=== PATIENT | male | born 2000 | race African-American/Black ===

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

== ENCOUNTER 2023-01-17 00:28 | Emergency (ER) | payer MEDICAID ==
[~2023-01-17] VITALS: Ht 172.7 cm; Wt 69.0 kg
[~2023-01-17 00:28] MED LIST: QUET25TA MT
[2023-01-17] MEDS ORDERED: LORAZEPAM 2MG/ML CPJ IM ONE (01:00)
[2023-01-17] MEDS ORDERED: HALOPERIDOL LACTATE 5MG/ML VIAL IM ONE (01:30)
[2023-01-17 01:43] LABS: BASOPHILS % 0.1 % (0.0-2.0); EOSINOPHILS % 2.2 % (0.0-5.0); HEMATOCRIT. 40.9 % (42.0-52.0); HEMOGLOBIN. 13.5 g/dL (14.0-18.0); LYMPHOCYTES % 12.3 % (20.0-50.0); MEAN CORPUSCULAR HEMOGLOBIN 29.2 pg (28.0-32.0); MEAN CORPUSCULAR VOLUME 88.1 fL (80.0-94.0); MEAN PLATELET VOLUME 9.5 fl (7.4-10.4); MONOCYTES % 5.5 % (2.0-8.0); NEUTROPHILS % 79.9 % (40.0-76.0); PLATELET 301 x1000/uL (130-400); RED BLOOD CELL COUNT 4.64 mill/uL (4.7-6.1); RED CELL DISTRIBUTION WIDTH 13.5 % (11.6-14.6)
[2023-01-17 01:45] LABS: CLARITY URINE CLEAR (CLEAR); COLOR URINE DARK YELLOW (YELLOW); KETONES URINE 2+ (NEGATIVE); LEUKOCYTE ESTERASE URINE NEGATIVE (NEGATIVE); NITRITE URINE NEGATIVE (NEGATIVE); OCCULT BLOOD URINE NEGATIVE (NEGATIVE); PH URINE 5.5 (4.5-8.0); PROTEIN URINE 2+ (NEGATIVE); SPECIFIC GRAVITY URINE 1.026 (1.005-1.030)
[2023-01-17 01:54] LABS: CHLORIDE 103 mEq/L (98-107)
[2023-01-17 01:56] LABS: *AMPHETAMINES SCREEN URINE PRESUMTIVE POSITIVE (NEGATIVE); *BARBITURATES SCREEN URINE NEGATIVE (NEGATIVE); *BENZODIAZEPINES SCREEN URINE PRESUMTIVE POSITIVE (NEGATIVE); *COCAINE SCREEN URINE NEGATIVE (NEGATIVE); CANNABINOID URINE SCREEN PRESUMTIVE POSITIVE (NEGATIVE); METHADONE URINE SCREEN NEGATIVE (NEGATIVE); OPIATES URINE SCREEN NEGATIVE (NEGATIVE); PHENCYCLIDINE URINE SCREEN NEGATIVE (NEGATIVE)
[2023-01-17 02:03] LABS: ETHANOL BLOOD 107 mg/dL (-10)
[2023-01-17] MEDS ORDERED: OLANZAPINE 5MG TABLET ODT PO SCH (17:00)
[2023-01-17 22:00] VITALS: BP 140/85
== END 2023-01-17 23:50 ==
LOC: ER 00:38
DX: R45.851 Suicidal ideations (principal); T43.641A Poisoning by ecstasy, accidental (unintentional), initial encounter; Y92.89 Other specified places as the place of occurrence of the external cause; T51.0X1A Toxic effect of ethanol, accidental (unintentional), initial encounter; Z20.822 Contact with and (suspected) exposure to COVID-19; F31.9 Bipolar disorder, unspecified; F20.9 Schizophrenia, unspecified; F12.10 Cannabis abuse, uncomplicated; F15.10 Other stimulant abuse, uncomplicated
CPT/HCPCS: 36415; 80053; 80305; 80307; 80320; 80329; 81003; 85025; 87426; 96372; 99285; C9803; J1630; J2060; Z7610; G0480

== ENCOUNTER 2023-02-05 20:50 | Emergency (ER) | payer MEDICAID ==
[~2023-02-05] VITALS: Ht 170.2 cm; Wt 59.0 kg
[2023-02-05 20:52] VITALS: BP 131/100; PULSE 75; RESP 16; TEMP 98.7; O2SAT 99
[2023-02-05] MEDS ORDERED: LORAZEPAM 1MG TABLET PO ONE (21:15)
== END 2023-02-05 21:42 | disposition left against medical advice (07) ==
LOC: ER 20:50
DX: T50.901A Poisoning by unspecified drugs, medicaments and biological substances, accidental (unintentional), initial encounter (principal); F14.10 Cocaine abuse, uncomplicated; F12.10 Cannabis abuse, uncomplicated; F15.10 Other stimulant abuse, uncomplicated; Z86.59 Personal history of other mental and behavioral disorders; Y92.9 Unspecified place or not applicable
CPT/HCPCS: 99283

== ENCOUNTER 2023-02-05 23:46 | Emergency (ER) | payer MEDICAID ==
[~2023-02-05] VITALS: Ht 180.3 cm; Wt 65.5 kg
[2023-02-05 23:54] VITALS: BP 155/89; PULSE 89; RESP 18; TEMP 98.7; O2SAT 100
== END 2023-02-06 00:15 | disposition left against medical advice (07) ==
LOC: ER 23:46
DX: Z53.21 Procedure and treatment not carried out due to patient leaving prior to being seen by health care provider (principal)
CPT/HCPCS: 99281

== ENCOUNTER 2023-02-06 02:26 | Emergency (ER) | payer MEDICAID ==
[~2023-02-06] VITALS: Ht 179.1 cm; Wt 66.0 kg
[2023-02-06 02:37] VITALS: BP 132/81; PULSE 142; RESP 22; TEMP 97.5; O2SAT 100
[2023-02-06] MEDS ORDERED: LORAZEPAM 2MG/ML CPJ IM ONE (03:00)
[2023-02-06] MEDS ORDERED: HALOPERIDOL LACTATE 5MG/ML VIAL IM ONE (03:00)
[2023-02-06 03:42] LABS: BASOPHILS % 0.3 % (0.0-2.0); EOSINOPHILS % 0.1 % (0.0-5.0); HEMATOCRIT. 38.6 % (42.0-52.0); HEMOGLOBIN. 12.8 g/dL (14.0-18.0); LYMPHOCYTES % 15.1 % (20.0-50.0); MEAN CORPUSCULAR HEMOGLOBIN 29.2 pg (28.0-32.0); MEAN CORPUSCULAR VOLUME 88.2 fL (80.0-94.0); MEAN PLATELET VOLUME 9.5 fl (7.4-10.4); NEUTROPHILS % 74.5 % (40.0-76.0); PLATELET 239 x1000/uL (130-400); RED BLOOD CELL COUNT 4.38 mill/uL (4.7-6.1); RED CELL DISTRIBUTION WIDTH 14.7 % (11.6-14.6)
[2023-02-06 03:52] LABS: CHLORIDE 107 mEq/L (98-107)
[2023-02-06 03:59] LABS: ETHANOL BLOOD < 10 mg/dL (-10)
[2023-02-06 04:47] LABS: CLARITY URINE CLEAR (CLEAR); COLOR URINE YELLOW (YELLOW); KETONES URINE TRACE (NEGATIVE); LEUKOCYTE ESTERASE URINE NEGATIVE (NEGATIVE); NITRITE URINE NEGATIVE (NEGATIVE); OCCULT BLOOD URINE NEGATIVE (NEGATIVE); PH URINE 7.5 (4.5-8.0); PROTEIN URINE NEGATIVE (NEGATIVE); SPECIFIC GRAVITY URINE 1.019 (1.005-1.030); UROBILINOGEN URINE 0.2 E.U./dL (0.2-1.0)
[2023-02-06 04:58] LABS: *AMPHETAMINES SCREEN URINE PRESUMTIVE POSITIVE (NEGATIVE); *BARBITURATES SCREEN URINE NEGATIVE (NEGATIVE); *BENZODIAZEPINES SCREEN URINE NEGATIVE (NEGATIVE); *COCAINE SCREEN URINE NEGATIVE (NEGATIVE); CANNABINOID URINE SCREEN NEGATIVE (NEGATIVE); METHADONE URINE SCREEN NEGATIVE (NEGATIVE); OPIATES URINE SCREEN NEGATIVE (NEGATIVE); PHENCYCLIDINE URINE SCREEN NEGATIVE (NEGATIVE)
== END 2023-02-06 13:12 | disposition home or self-care (01) ==
LOC: ER 05:07
DX: R00.0 Tachycardia, unspecified (principal); T43.655A Adverse effect of methamphetamines, initial encounter; Z20.822 Contact with and (suspected) exposure to COVID-19; Y92.9 Unspecified place or not applicable
CPT/HCPCS: 80053; 80305; 81003; 80307; 80329; 80320; 85025; 36415; 96372; 99284; 87426; J1630; J2060; C9803; Z7610 ×2; G0480

== ENCOUNTER 2023-02-06 19:32 | Emergency (ER) | payer MEDICAID ==
[~2023-02-06] VITALS: Ht 180.3 cm; Wt 66.0 kg
[2023-02-06] MEDS ORDERED: LORAZEPAM 2MG/ML CPJ IM ONE (20:15)
[2023-02-06] MEDS ORDERED: DIPHENHYDRAMINE 50MG/ML VIAL IM ONE ×2 (20:15→21:00)
[2023-02-06 20:23] LABS: BASOPHILS % 0.5 % (0.0-2.0); EOSINOPHILS % 0.5 % (0.0-5.0); HEMOGLOBIN. 13.8 g/dL (14.0-18.0); LYMPHOCYTES % 25.2 % (20.0-50.0); MEAN CORPUSCULAR HEMOGLOBIN 29.2 pg (28.0-32.0); MEAN CORPUSCULAR VOLUME 89.1 fL (80.0-94.0); MEAN PLATELET VOLUME 9.4 fl (7.4-10.4); MONOCYTES % 9.9 % (2.0-8.0); NEUTROPHILS % 63.9 % (40.0-76.0); PLATELET 277 x1000/uL (130-400); RED BLOOD CELL COUNT 4.71 mill/uL (4.7-6.1)
[2023-02-06 20:31] LABS: CHLORIDE 105 mEq/L (98-107)
[2023-02-06 20:37] LABS: ETHANOL BLOOD < 10 mg/dL (-10)
[2023-02-06] MEDS ORDERED: HALOPERIDOL LACTATE 5MG/ML VIAL IM ONE (21:00)
[2023-02-06 21:24] LABS: *AMPHETAMINES SCREEN URINE PRESUMTIVE POSITIVE (NEGATIVE); *BARBITURATES SCREEN URINE NEGATIVE (NEGATIVE); *BENZODIAZEPINES SCREEN URINE NEGATIVE (NEGATIVE); *COCAINE SCREEN URINE NEGATIVE (NEGATIVE); CANNABINOID URINE SCREEN NEGATIVE (NEGATIVE); METHADONE URINE SCREEN NEGATIVE (NEGATIVE); OPIATES URINE SCREEN NEGATIVE (NEGATIVE); PHENCYCLIDINE URINE SCREEN NEGATIVE (NEGATIVE)
[2023-02-06] MEDS ORDERED: MIDAZOLAM HCL 2 MG/2 ML VIAL IM ONE (21:45)
[2023-02-07] MEDS ORDERED: OLANZAPINE 10 MG/VIAL IM ONE ×2 (08:45→14:00)
[2023-02-07] MEDS ORDERED: LORAZEPAM 2MG/ML CPJ IM ONE (08:45)
[2023-02-07 09:09] VITALS: O2SAT 99
[2023-02-07] MEDS ORDERED: LORAZEPAM 2MG/ML CPJ IM STA ×2 (10:06→13:54)
[2023-02-07 16:06] VITALS: BP 118/76; PULSE 90; RESP 16; TEMP 98.2
[2023-02-07] MEDS ORDERED: LORAZEPAM 2MG/ML CPJ IM NR (17:00)
[2023-02-07] MEDS ORDERED: OLANZAPINE 10 MG/VIAL IM NR (17:00)
[2023-02-07] MEDS ORDERED: MIRTAZAPINE 15MG TABLET PO SCH (21:00)
[2023-02-07] MEDS ORDERED: RISPERIDONE 1MG TABLET PO SCH (21:00)
== END 2023-02-07 18:10 ==
LOC: ER 19:32
DX: F15.90 Other stimulant use, unspecified, uncomplicated (principal); Z20.822 Contact with and (suspected) exposure to COVID-19
CPT/HCPCS: 80305; 80048; 80307; 80329; 80320; 85025; 36415; 96372 ×2; 99291; 87426; J1200; J1630; J2060 ×2; J2250; J3490; C9803; Z7610 ×3; G0480

== ENCOUNTER 2023-03-07 19:19 | Emergency (ER) | payer MEDICAID ==
[2023-03-07 19:23] VITALS: BP 143/85; PULSE 139; RESP 22; TEMP 99.3
[2023-03-07] MEDS ORDERED: TETANUS, DIPHTHERIA, PERTUSSIS VAC/PF 0.5ML (>10YR OLD) IM ONE (20:00)
[2023-03-07 20:36] LABS: HEMATOCRIT. 41.3 % (42.0-52.0); HEMOGLOBIN. 13.6 g/dL (14.0-18.0); MEAN CORPUSCULAR HEMOGLOBIN 29.2 pg (28.0-32.0); MEAN CORPUSCULAR VOLUME 88.3 fL (80.0-94.0); MEAN PLATELET VOLUME 9.3 fl (7.4-10.4); PLATELET 345 x1000/uL (130-400); RED BLOOD CELL COUNT 4.68 mill/uL (4.7-6.1); RED CELL DISTRIBUTION WIDTH 13.9 % (11.6-14.6); WHITE BLOOD COUNT 16.3 x1000/uL (4.5-11.0)
[2023-03-07 20:37] LABS: DIFFERENTIAL COMMENT 1
[2023-03-07 20:40] LABS: CHLORIDE 113 mEq/L (98-107); INDEX HEMOLYSI 1 (1-3); INDEX ICTERIC 1 (1-4); INDEX LIPEMIC 1 (1-3); POTASSIUM 4.2 mEq/L (3.5-5.1); SODIUM 145 mEq/L (136-145)
[2023-03-07 20:43] LABS: ALBUMIN 4.4 g/dL (3.4-5.0); CARBON DIOXIDE 21 mEq/L (21-32); ETHANOL BLOOD < 10 mg/dL (-10); GLUCOSE 92 mg/dL (70-105); UREA NITROGEN BLOOD 15 mg/dL (7-21)
[2023-03-07 20:46] LABS: ACETAMINOPHEN <2 ug/mL ug/mL (10-30); ALANINE AMINOTRANSFERASE 49 IU/L (13-61); ASPARTATE AMINOTRANSFERASE 68 IU/L (15-37); BILIRUBIN TOTAL 0.7 mg/dL (0.1-1.0); CREATININE 1.4 mg/dL (0.6-1.3); PROTEIN TOTAL 8.1 g/dL (6.0-8.3)
[2023-03-07 21:00] LABS: PLATELET ESTIMATE NORMAL
== END 2023-03-07 20:10 | disposition left against medical advice (07) ==
LOC: ER 19:19
DX: T43.655A Adverse effect of methamphetamines, initial encounter (principal); Y92.89 Other specified places as the place of occurrence of the external cause; F31.9 Bipolar disorder, unspecified; F20.9 Schizophrenia, unspecified
CPT/HCPCS: 36415; 80053; 80307; 80320; 80329; 85025; 99283; G0480

== ENCOUNTER 2023-03-07 21:46 | Emergency (ER) | payer MEDICAID ==
[2023-03-07] MEDS ORDERED: MIDAZOLAM HCL 2 MG/2 ML VIAL IM ONE (22:00)
[2023-03-08] MEDS ORDERED: HALOPERIDOL LACTATE 5MG/ML VIAL IM ONE (01:45)
[2023-03-08] MEDS ORDERED: MIDAZOLAM HCL 2 MG/2 ML VIAL IM ONE (01:45)
[2023-03-08 04:49] LABS: BASOPHILS % 0.7 % (0.0-2.0); EOSINOPHILS % 0.1 % (0.0-5.0); HEMATOCRIT. 37.7 % (42.0-52.0); HEMOGLOBIN. 12.6 g/dL (14.0-18.0); LYMPHOCYTES % 15.2 % (20.0-50.0); MEAN CORPUSCULAR HEMOGLOBIN 29.5 pg (28.0-32.0); MEAN CORPUSCULAR HGB CONC 33.4 g/dL (31.0-37.0); MEAN CORPUSCULAR VOLUME 88.3 fL (80.0-94.0); MEAN PLATELET VOLUME 9.1 fl (7.4-10.4); MONOCYTES % 9.6 % (2.0-8.0); NEUTROPHILS % 74.4 % (40.0-76.0); PLATELET 256 x1000/uL (130-400); RED BLOOD CELL COUNT 4.27 mill/uL (4.7-6.1); RED CELL DISTRIBUTION WIDTH 14.1 % (11.6-14.6); WHITE BLOOD COUNT 11.6 x1000/uL (4.5-11.0)
[2023-03-08 04:56] LABS: CHLORIDE 110 mEq/L (98-107); INDEX HEMOLYSI 1 (1-3); INDEX ICTERIC 1 (1-4); INDEX LIPEMIC 1 (1-3); POTASSIUM 3.4 mEq/L (3.5-5.1); SODIUM 140 mEq/L (136-145)
[2023-03-08 05:00] VITALS: BP 140/70; PULSE 70; RESP 17; TEMP 97.6
[2023-03-08 05:04] LABS: ACETAMINOPHEN < 2 ug/mL (10-30); ALANINE AMINOTRANSFERASE 51 IU/L (13-61); ALBUMIN 3.8 g/dL (3.4-5.0); ASPARTATE AMINOTRANSFERASE 111 IU/L (15-37); BILIRUBIN TOTAL 0.6 mg/dL (0.1-1.0); CALCIUM 8.8 mg/dL (8.5-10.1); CARBON DIOXIDE 24 mEq/L (21-32); CREATININE 1.1 mg/dL (0.6-1.3); ETHANOL BLOOD < 10 mg/dL (-10); GLUCOSE 83 mg/dL (70-105); PROTEIN TOTAL 7.1 g/dL (6.0-8.3); UREA NITROGEN BLOOD 12 mg/dL (7-21)
== END 2023-03-08 07:49 | disposition left against medical advice (07) ==
LOC: ER 21:46
DX: F15.129 Other stimulant abuse with intoxication, unspecified (principal); R45.1 Restlessness and agitation; F31.9 Bipolar disorder, unspecified; F20.9 Schizophrenia, unspecified
CPT/HCPCS: 96372 ×2; 99291; 80053; 80307; 80329; 80320; 85025; 36415; J2250 ×2; J1630; G0480

== ENCOUNTER 2023-03-13 23:52 | Emergency (ER) | payer MEDICAID ==
[~2023-03-13] VITALS: Ht 180.3 cm; Wt 80.0 kg
[2023-03-13 23:54] VITALS: O2SAT 97
[2023-03-14] MEDS ORDERED: LORAZEPAM 2MG/ML CPJ IM ONE (00:30)
[2023-03-14] MEDS ORDERED: DIPHENHYDRAMINE 50MG/ML VIAL IM ONE (00:30)
[2023-03-14] MEDS ORDERED: HALOPERIDOL LACTATE 5MG/ML VIAL IM ONE (00:30)
[2023-03-14 01:13] LABS: CLARITY URINE CLEAR (CLEAR); COLOR URINE YELLOW (YELLOW); GLUCOSE URINE NEGATIVE (NEGATIVE); KETONES URINE 1+ (NEGATIVE); LEUKOCYTE ESTERASE URINE NEGATIVE (NEGATIVE); NITRITE URINE NEGATIVE (NEGATIVE); OCCULT BLOOD URINE NEGATIVE (NEGATIVE); PH URINE 8.5 (4.5-8.0); PROTEIN URINE 2+ (NEGATIVE); SPECIFIC GRAVITY URINE 1.028 (1.005-1.030)
[2023-03-14 01:15] LABS: BACTERIA URINE NONE SEEN; RBC URINE 0-2 /hpf (0-2); SQUAMOUS EPITHELIAL CELL URINE NONE SEEN /lpf (RARE/1+); WBC URINE 0-2 /hpf (0-2); YEAST URINE NONE SEEN
[2023-03-14 01:43] LABS: BASOPHILS % 0.3 % (0.0-2.0); EOSINOPHILS % 0.1 % (0.0-5.0); HEMATOCRIT. 42.5 % (42.0-52.0); HEMOGLOBIN. 14.2 g/dL (14.0-18.0); LYMPHOCYTES % 12.9 % (20.0-50.0); MEAN CORPUSCULAR HEMOGLOBIN 29.6 pg (28.0-32.0); MEAN CORPUSCULAR HGB CONC 33.4 g/dL (31.0-37.0); MEAN CORPUSCULAR VOLUME 88.4 fL (80.0-94.0); MEAN PLATELET VOLUME 10.2 fl (7.4-10.4); MONOCYTES % 10.6 % (2.0-8.0); NEUTROPHILS % 76.1 % (40.0-76.0); PLATELET 282 x1000/uL (130-400); RED CELL DISTRIBUTION WIDTH 14.2 % (11.6-14.6); WHITE BLOOD COUNT 10.8 x1000/uL (4.5-11.0)
[2023-03-14 01:48] LABS: CALCIUM 9.7 mg/dL (8.5-10.1); CHLORIDE 107 mEq/L (98-107); INDEX HEMOLYSI 1 (1-3); INDEX ICTERIC 1 (1-4); INDEX LIPEMIC 1 (1-3); POTASSIUM 3.9 mEq/L (3.5-5.1); SODIUM 141 mEq/L (136-145)
[2023-03-14 01:57] LABS: ACETAMINOPHEN <2 ug/mL ug/mL (10-30); ALANINE AMINOTRANSFERASE 50 IU/L (13-61); ALBUMIN 4.5 g/dL (3.4-5.0); ASPARTATE AMINOTRANSFERASE 54 IU/L (15-37); BILIRUBIN TOTAL 0.4 mg/dL (0.1-1.0); CARBON DIOXIDE 21 mEq/L (21-32); CREATININE 1.2 mg/dL (0.6-1.3); ETHANOL BLOOD < 10 mg/dL (-10); GLUCOSE 111 mg/dL (70-105); PROTEIN TOTAL 8.3 g/dL (6.0-8.3); UREA NITROGEN BLOOD 14 mg/dL (7-21)
[2023-03-14 02:17] LABS: *AMPHETAMINES SCREEN URINE PRESUMTIVE POSITIVE (NEGATIVE); *BARBITURATES SCREEN URINE NEGATIVE (NEGATIVE); *BENZODIAZEPINES SCREEN URINE NEGATIVE (NEGATIVE); *COCAINE SCREEN URINE NEGATIVE (NEGATIVE); CANNABINOID URINE SCREEN NEGATIVE (NEGATIVE); ECSTASY MDMA SCREEN URINE NEGATIVE (NEGATIVE); METHADONE URINE SCREEN NEGATIVE (NEGATIVE); OPIATES URINE SCREEN NEGATIVE (NEGATIVE); PHENCYCLIDINE URINE SCREEN NEGATIVE (NEGATIVE)
[2023-03-14] MEDS: OLANZAPINE 5MG TABLET ODT PO SCH ×2 (10:13→17:19)
[2023-03-14] MEDS ORDERED: LORAZEPAM 2MG/ML CPJ IM STA (21:44)
[2023-03-15 06:30] VITALS: BP 115/75; PULSE 69; RESP 20; TEMP 97.9
== END 2023-03-15 09:20 | disposition left against medical advice (07) ==
LOC: ER 23:57
DX: R45.851 Suicidal ideations (principal); Z86.59 Personal history of other mental and behavioral disorders; Z20.822 Contact with and (suspected) exposure to COVID-19
CPT/HCPCS: 80053; 80305; 81003; 80307; 80329; 80320; 85025; 36415; 99285; 87426; 96372; C9803; G0480

== ENCOUNTER 2023-03-15 21:22 | Emergency (ER) | payer MEDICAID ==
[~2023-03-15] VITALS: Ht 180.3 cm; Wt 67.0 kg
[2023-03-15 22:12] VITALS: O2SAT 98
[2023-03-15] MEDS ORDERED: LORAZEPAM 1MG TABLET PO ONE (22:30)
[2023-03-15 22:56] VITALS: BP 157/98; PULSE 125; RESP 18; TEMP 98
[2023-03-15] MEDS ORDERED: ACETAMINOPHEN 325MG TABLET PO ONE (23:00)
== END 2023-03-16 05:02 | disposition home or self-care (01) ==
LOC: ER 21:22
DX: T43.655A Adverse effect of methamphetamines, initial encounter (principal); R00.0 Tachycardia, unspecified; F17.210 Nicotine dependence, cigarettes, uncomplicated; X58.XXXA Exposure to other specified factors, initial encounter
CPT/HCPCS: 71045; 93005; 99283; Z7610

== ENCOUNTER 2023-06-18 20:32 | Emergency (ER) | payer MEDICAID ==
[~2023-06-18] VITALS: Ht 180.3 cm; Wt 75.0 kg
[2023-06-18 20:34] VITALS: O2SAT 100
[2023-06-18] MEDS ORDERED: KETOROLAC 60MG/2ML VIAL IM ONE (20:45)
[2023-06-18 22:12] VITALS: TEMP 98.2
[2023-06-18 22:13] VITALS: BP 128/80; PULSE 98; RESP 18
== END 2023-06-18 22:15 | disposition home or self-care (01) ==
LOC: ER 20:32
DX: F15.10 Other stimulant abuse, uncomplicated (principal)
CPT/HCPCS: 99283

== ENCOUNTER 2023-11-30 06:38 | Emergency (ER) | payer MEDICAID ==
[~2023-11-30] VITALS: Ht 177.8 cm; Wt 68.0 kg
[2023-11-30 06:43] VITALS: O2SAT 97
[2023-11-30] MEDS ORDERED: LORAZEPAM 1MG TABLET PO ONE (06:45)
[2023-11-30] MEDS: LORAZEPAM 1MG TABLET PO NR (08:41)
[2023-11-30] MEDS: LORAZEPAM 1MG TABLET PO ONE (08:41)
[2023-11-30 10:38] VITALS: BP 140/83; PULSE 100; RESP 18; TEMP 98.6
== END 2023-11-30 10:40 | disposition home or self-care (01) ==
LOC: ER 06:38
DX: F15.10 Other stimulant abuse, uncomplicated (principal)
CPT/HCPCS: 99283

== ENCOUNTER 2023-11-30 11:00 | Emergency (ER) | payer MEDICAID ==
[~2023-11-30] VITALS: Ht 180.3 cm; Wt 63.0 kg
[2023-11-30 11:14] VITALS: BP 155/73; PULSE 63; RESP 16; TEMP 98; O2SAT 100
== END 2023-11-30 11:32 | disposition home or self-care (01) ==
LOC: ER 11:00
DX: F15.10 Other stimulant abuse, uncomplicated (principal); F41.9 Anxiety disorder, unspecified
CPT/HCPCS: 99281